=== PATIENT | male | born 1945 | race Caucasian/White ===

== ENCOUNTER 2022-08-22 06:17 | Inpatient (IN) | payer MEDICARE, OTHER ==
[~2022-08-22] VITALS: Ht 185.4 cm; Wt 65.8 kg
[~2022-08-22 06:17] MED LIST: AMLO-213 PO; ASPI-1169 PO; ATOR10TA PO; BUSP30TA2 PO; DIPH50CA4 PO; DOXA4TAB3 PO; DOXE150C PO; HYDR473S13 PO; LAMO100T17 PO; LOSA100T3 PO; METO100T14 PO; METO100T7 PO; PRAZ2CAP2 PO; TIZA4TAB5 PO; TRAZ-257 PO
--- NOTE | 2022-08-22 07:45 | NUR ---
Patient AOx4 able to express his concerns. Patient made aware of plan of care, patietn verbalized agreement. All safety precautions taken.
--- NOTE | 2022-08-22 07:49 | NUR ---
PAGED DR. DOMÍNGUEZ FOR ORTHO CONSULT. WAITING FOR CALLBACK
--- NOTE | 2022-08-22 08:06 | NUR ---
MOVE SHEET SUBMITTED.
[2022-08-22 08:25] LABS: BASOPHILS # (AUTO) 0.7 K/uL (0.0-0.2); BASOPHILS % (AUTO) 3.7 % (0.0-2.0); EOSINOPHILS % (AUTO) 0.2 % (0.0-6.0); HEMATOCRIT 30 % (39-51); HEMOGLOBIN 9.6 g/dL (13.5-17.5); MEAN CORPUSCULAR HGB CONC 32 g/dl (31.0-36.0); MEAN CORPUSCULAR VOLUME 94 fL (80-96); MONOCYTES # (AUTO) 1.7 K/uL (0.1-1.30); MONOCYTES % (AUTO) 8.9 % (2.0-12.0); NEUTROPHILS # (AUTO) 13.5 K/uL (1.8-8.9); NEUTROPHILS % (AUTO) 71.2 % (43.0-81.0); RED BLOOD CELL COUNT(AUTO) 3.17 MIL/uL (4.5-6.0)
[2022-08-22] MEDS ORDERED: ONDANSETRON HCL/PF 4 MG/2 ML VIAL ONE (08:47)
[2022-08-22] MEDS ORDERED: MORPHINE SULFATE INJ 4 MG/ML DISP.SYRIN ONE (08:47)
[2022-08-22 08:49] LABS: CALCIUM, SERUM 8.2 mg/dL (8.5-10.1); CARBON DIOXIDE 24 mmol/L (21-32); CHLORIDE 103 mmol/L (98-107); CREATININE 1.4 mg/dL (0.6-1.3); GLUCOSE 148 mg/dL (74-106); POTASSIUM 4.3 mmol/L (3.5-5.1); SODIUM SERUM 136 mmol/L (136-145); UREA NITROGEN, BLOOD 34 mg/dL (7-18)
[2022-08-22] MEDS ORDERED: BUSPIRONE HCL PO SCH (09:00)
[2022-08-22] MEDS ORDERED: hydrALAZINE HCL IV 20 MG VIAL IV PRN (09:00)
[2022-08-22] MEDS ORDERED: ACETAMINOPHEN 325 MG TABLET PO PRN (09:00)
[2022-08-22] MEDS ORDERED: ONDANSETRON HCL/PF 4 MG/2 ML VIAL IVP PRN (09:00)
[2022-08-22] MEDS ORDERED: MORPHINE SULFATE INJ 2 MG/ML DISP.SYRIN IV ONE (09:00)
[2022-08-22] MEDS ORDERED: IV NS 0.9% 1,000 ML IV ONE (09:00)
[2022-08-22] MEDS ORDERED: ATORVASTATIN 10 MG TABLET PO SCH (09:00)
[2022-08-22] MEDS ORDERED: MORPHINE SULFATE INJ 2 MG/ML DISP.SYRIN IV PRN (09:00)
[2022-08-22] MEDS ORDERED: LamoTRIgine 100 MG TABLET PO SCH (09:00)
[2022-08-22] MEDS ORDERED: ONDANSETRON HCL/PF 4 MG/2 ML VIAL IV ONE (09:00)
[2022-08-22] MEDS ORDERED: AMLODIPINE BESYLATE 10 MG TABLET PO SCH (09:00)
--- NOTE | 2022-08-22 09:10 | NUR ---
All medictions administered, no signs of infiltration, safety precautions taken.
[2022-08-22] MEDS ORDERED: QUET100T PO (10:05)
[2022-08-22] MEDS ORDERED: AMOX1TAB16 PO (10:14)
[2022-08-22] MEDS ORDERED: SENN-261 PO (10:14)
[2022-08-22] MEDS ORDERED: METO25TA4 PO (10:14)
[2022-08-22] MEDS ORDERED: INSU100I4 SQ (10:14)
[2022-08-22] MEDS ORDERED: POLY17PO4 PO (10:14)
[2022-08-22] MEDS ORDERED: INSU100V7 SQ (10:14)
[2022-08-22] MEDS ORDERED: ASPI-1169 PO (10:14)
[2022-08-22] MEDS ORDERED: CHOL100043 PO (10:14)
[2022-08-22] MEDS ORDERED: METO10TA3 PO (10:14)
[2022-08-22] MEDS ORDERED: HYDR-3642 PO (10:16)
--- NOTE | 2022-08-22 10:18 | NUR ---
111-2. admitting made aware
--- NOTE | 2022-08-22 10:45 | NUR ---
PATIENT ARRIVED VIA STRETCHER FROM ER. PATIENT WITH RIGHT HIP FRACTURE; WILL HAVE A SURGERY TOMORROW. PATIENT A/OX3 YI SPEAKING ON ROOM AIR. IV SITE RFA G #20 RUNNING NS @75ML/HR. SKIN INTACT. NO ST. BEFORE HIP FRACTURE PATIENT WAS AMBULATORY ON HIS OWN. WILL CONTINUE THE CARE THROUGHOUT THE SHIFT.
--- NOTE | 2022-08-22 10:56 | NUR ---
Sid transported to [facility]. room 111-2, report given to RN. Patient agrees with plan of care. All safety precautions taken.
[2022-08-22] MEDS: IV NS 0.9% 1,000 ML IV SCH ×2 (11:00→18:59)
[2022-08-22] MEDS: ZOSYN IVPB 3.375 G in IV D5W 50ml IV SCH ×3 (11:55→23:06)
[2022-08-22 12:00] VITALS: BP 89/54
[2022-08-22] MEDS: MORPHINE SULFATE IR 15 MG TABLET PO SCH ×2 (12:33→16:29)
[2022-08-22 12:40] LABS: ALBUMIN 1.6 g/dL (3.4-5.0); BILIRUBIN,DIRECT 6.7 mg/dL (0.0-0.2); BILIRUBIN,TOTAL 7.9 mg/dL (0.2-1.0)
[2022-08-22 13:21] LABS: BAND % (MANUAL) 3 % (0.0-5.0); NEUTROPHILS % (MANUAL) 80 (42-76)
[2022-08-22 13:22] LABS: LYMPHOCYTES % (MANUAL) 7 % (16-48); MONOCYTES % (MANUAL) 10 % (0-11.0)
[2022-08-22 13:30] LABS: PLATELET COUNT (AUTO) 133 K/uL (150-450)
--- NOTE | 2022-08-22 13:50 | NUR ---
PATIENT'S SHAYNE SIGNED THE CONSENT FORMS FOR THE RIGHT HIP HEMIARTHROPLASTY, ANESTHESIA, AND BLOOD TRANSFUSION. ALL PLACED IN PATIENT'S CHART
--- NOTE | 2022-08-22 16:30 | NUR ---
PATIENT ASKED ABOUT GOING HOME, DR. PAVON NOTIFIED AND HE SAID TO TEXT THE MRI RESULT TO DR. PECK THE NEUROLOGIST SO HE CAN CLEAR THE PATIENT. THE TEXT WAS SENT AND WAITING FRO DR. PECK'S RESPONSE.
--- NOTE | 2022-08-22 18:54 | NUR ---
RN CLOSING NOTE PATIENT ON ROOM AIR A/O X4. COOPERATIVE AND FOLLOWS COMMANDS. NO SOB OR DISTRESS NOTED. PT MUST BE NPO AFTER MIDNIGHT FOR TOMORROW'S RIGHT HIM HEMIARTHROPLASTY. ALL DUE MEDS GIVEN THROUGHOUT THE SHIFT. PATIENT KEPT CLEAN AND DRY. WILL ENDORSE THE PATIENT TO THE HOT DIE PRESS FEEDER NURSE FOR ELIZABETH.
--- NOTE | 2022-08-22 19:30 | NUR ---
MS RN OPENING NOTE RECEIVED PATIENT IN BED, AWAKE, A/O X 4, ABLE TO VERBALIZE NEEDS. CURRENTLY ON ROOM AIR, TOLERATING WELL. NO S/SX OF ACUTE RESPI DISTRESS NOTED AT THIS TIME. NO SOB. BREATHING IS EVEN AND UNLABORED. IV ACCESS ON RFA, #20g, PATENT, INTACT AND RUNNING NS @ 125 CC/HR. PT SCHEDULED FOR R HIP HEMIARTHROPLASTY TOMORROW. PT WILL BE NPO AFTER MIDNIGHT. ALL SAFETY MEASURES IN PLACE: BED LOCKED IN LOW POSITION. BED ALARM ON. SR UP X 2. CALL LIGHT WITHIN REACH. WILL CONTINUE TO MONITOR PT.
[2022-08-22 20:00] VITALS: BP 110/68
[2022-08-22] MEDS: HYDROMORPHONE INJ 2 MG/ML DISP.SYRIN IV PRN (20:11)
--- NOTE | 2022-08-22 20:45 | NUR ---
RN NOTE PT COMPLAINS OF PAIN ON HIS R HIP. DILAUDID GIVEN ORDERED.
[2022-08-22] MEDS ORDERED: DOXEPIN HCL 150 MG PO SCH (22:00)
[2022-08-22] MEDS ORDERED: DOXAZOSIN MESYLATE (4 MG) 4 MG TABLET PO SCH (22:00)
[2022-08-23] MEDS: IV NS 0.9% 1,000 ML IV SCH ×3 (01:36→19:24)
[2022-08-23] MEDS: HYDROMORPHONE INJ 2 MG/ML DISP.SYRIN IV PRN ×2 (01:59→12:59)
[2022-08-23] MEDS: ZOSYN IVPB 3.375 G in IV D5W 50ml IV SCH ×3 (05:33→18:15)
[2022-08-23 05:41] VITALS: BP 107/64
--- NOTE | 2022-08-23 06:14 | NUR ---
MS RN CLOSING NOTE PT HAD PERIODS OF CONFUSION T/O THE NIGHT. SAFETY MEASURES IMPLEMENTED. ALL DUE MEDS GIVEN. NEEDS MET. WILL ENDORSE TO AM SHIFT NURSE FOR ELIZABETH.
[2022-08-23] MEDS: METOPROLOL SUCCINATE 25 MG TAB.SR.24H PO SCH (08:41)
[2022-08-23] MEDS: MORPHINE SULFATE IR 15 MG TABLET PO SCH ×2 (08:42→16:26)
[2022-08-23] MEDS ORDERED: LOSARTAN POTASSIUM 50 MG TABLET PO SCH (09:00)
[2022-08-23 09:07] LABS: BASOPHILS # (AUTO) 0.5 K/uL (0.0-0.2); BASOPHILS % (AUTO) 2.5 % (0.0-2.0); EOSINOPHILS % (AUTO) 0.5 % (0.0-6.0); HEMATOCRIT 30 % (39-51); HEMOGLOBIN 9.5 g/dL (13.5-17.5); LYMPHOCYTES # (AUTO) 5.2 K/uL (0.8-4.8); LYMPHOCYTES % (AUTO) 27.1 % (20.0-44.0); MEAN CORPUSCULAR HGB CONC 32 g/dl (31.0-36.0); MEAN CORPUSCULAR VOLUME 96 fL (80-96); MONOCYTES # (AUTO) 1.1 K/uL (0.1-1.30); MONOCYTES % (AUTO) 5.5 % (2.0-12.0); NEUTROPHILS # (AUTO) 12.4 K/uL (1.8-8.9); NEUTROPHILS % (AUTO) 64.4 % (43.0-81.0); RED BLOOD CELL COUNT(AUTO) 3.12 MIL/uL (4.5-6.0); WHITE BLOOD COUNT (AUTO) 19.2 K/uL (4.3-11.0)
[2022-08-23 09:28] LABS: PLATELET COUNT (AUTO) 41 K/uL (150-450)
[2022-08-23 09:49] LABS: ALANINE AMINOTRANSFERASE 60 U/L (12-78); ALBUMIN 1.5 g/dL (3.4-5.0); ASPARTATE AMINOTRANSFERASE 192 U/L (15-37); BILIRUBIN,TOTAL 7.4 mg/dL (0.2-1.0); CALCIUM, SERUM 7.9 mg/dL (8.5-10.1); CARBON DIOXIDE 22 mmol/L (21-32); CHLORIDE 107 mmol/L (98-107); CREATININE 1.4 mg/dL (0.6-1.3); GLUCOSE 97 mg/dL (74-106); MAGNESIUM 1.8 mg/dL (1.8-2.4); PHOSPHORUS 3.2 mg/dL (2.5-4.9); POTASSIUM 4.1 mmol/L (3.5-5.1); SODIUM SERUM 137 mmol/L (136-145); TOTAL PROTEIN, SERUM 5.8 g/dL (6.4-8.2); UREA NITROGEN, BLOOD 33 mg/dL (7-18)
[2022-08-23 09:53] LABS: ALKALINE PHOSPHATASE 1478 U/L (46-116)
[2022-08-23 12:00] VITALS: BP 117/65
--- NOTE | 2022-08-23 12:30 | NUR ---
PATIENT'S IV SITE ON RIGHT FOREARM INFILTRATED, IV SITE REMOVED ICE PACK APPLIED ARM ELEVATED. GOING TO ORDER A MIDLINE BECAUSE PATIENT IS HARD STICK.
--- NOTE | 2022-08-23 12:30 | NUR ---
ms rn note called to miguel ayala notified that patient incidentally had 2 oranges and 1 milk ordered to do surgery tomorrow at 0730 and platelets to transfuse 1 units and 1 units stand by for surgery , also wants manage platelets above 75k, dr bang notified also about this
--- NOTE | 2022-08-23 15:49 | NUR ---
rn telephone triage note per blood bank no platelets ready yet ,they need order [facility] ,called to dr oh notified about this also notified that takes 4 hour and more to get platelets from [facility] will f\u
--- NOTE | 2022-08-23 17:00 | NUR ---
PLATELETS COUNT 41 AT 1300 SURGEON NOTIFIED HE ORDERED 2 UNITS OF PLASMA. PLASMA PREPARATION WAS NOT EASY BECAUSE IT WOULD TAKE 4 HRS TO BRING [facility] PLATELETS FROM [facility] SURGERY TIME AND DATE CHANGED FROM TODAY 4 PM TO TOMORROW [address] AT [address] EVON FAN SHOWED UP AND INSERT A MIDLINE ON PATIENT'S RIGHT UPPER ARM G 20. INTACT AND FLUSHING.
[2022-08-23 17:31] LABS: BAND % (MANUAL) 1 % (0.0-5.0); EOSINOPHILS % (MANUAL) 1 % (0-4); LYMPHOCYTES % (MANUAL) 7 % (16-48); MONOCYTES % (MANUAL) 3 % (0-11.0); NEUTROPHILS % (MANUAL) 88 (42-76)
[2022-08-23 20:00] VITALS: BP 96/63
--- NOTE | 2022-08-23 20:07 | NUR ---
RN CLOSING NOTES PATIENT IN BED A/OX3 ON ROOM AIR. NO SOB OR DISTRESS NOTED. PATIENT KEPT CLEAN AND DRY. PATIENT IS GOING TO HAVE A RIGHT HIP SURGERY TOMORROW AT 0730. FISH CUTTER NURSE EVELYN WILL ADMINISTER THE 2 UNITS OF PLATELETS AND WILL ORDER CBC AFTER INFUSION IS COMPLETED. THE GOAL PER THE SURGEON IS TO KEEP THE PLT COUNT OVER 75.
[2022-08-23 21:05] VITALS: BP 102/65
--- NOTE | 2022-08-23 21:05 | NUR ---
RN NOTE STARTED 1ST BAG OF PLATELET ORDERED. INITIAL VITAL SIGNS TAKEN AND NOTED TO BE WNL. INFUSED PER PROTOCOL. WILL CONTINUE TO MONITOR AND ASSESS FOR ANY BLOOD TRANSFUSION REACTION AND ADDRESS ACCORDINGLY. PROPERTY CLAIMS ADJUSTER WELL AWARE. *PER LAB ([facility]) 2ND BAG OF PLATELET HAS BEEN REQUESTED BUT NO YET ON HAND, THEY WILL CALL ONCE AVAILABLE. RN ACKNOWLEDGED.
[2022-08-23 21:20] VITALS: BP 100/57
[2022-08-23 21:35] VITALS: BP 100/60
--- NOTE | 2022-08-23 22:05 | NUR ---
RN NOTE CALLED RECEIVED FROM [facility], RN PROVIDED UPDATE 2 ORDERS OF PLATELET BUT ONLY 1 BAG HAS BEEN GIVEN AT THIS TIME, STILL WAITING FOR 2ND BAG, ONCE AVAILABLE WILL TRANSFUSE AND ONCE DONE WILL DO REPEAT CBC POST TRANSFUSION.
--- NOTE | 2022-08-23 22:35 | NUR ---
RN NOTE RECEIVED MSG FROM [facility] ORDER GIVEN FOR STAT PLATELET S/P 1ST BAG OF PLATELET AND THEN ANOTHER PLATELET COUNT AFTER 2NF BAG DONE. WAS ADVISED TO SEND HIM RESULT ONCE OUT. RN ACKNOWLEDGED AND WILL CARRY OUT. Addendum: 08/24/22 at 0104 by GIOVANNY LU RN @0010 PLATELET COUNT CAME OUT 73, NOTIFIED [facility]. ALSO ADVISED THAT STILL WAITING FOR THE 2ND BAG OF PLATELET.
--- NOTE | 2022-08-24 | NUR ---
RN NOTE PT PLACED ON NPO IN PREPARATION FOR AM PROCEDURE/SX
[2022-08-24] MEDS: HYDROMORPHONE INJ 2 MG/ML DISP.SYRIN IV PRN ×3 (00:20→21:43)
[2022-08-24] MEDS: ZOSYN IVPB 3.375 G in IV D5W 50ml IV SCH ×2 (00:20→05:01)
[2022-08-24] MEDS: IV NS 0.9% 1,000 ML IV SCH (00:26)
--- NOTE | 2022-08-24 01:04 | NUR ---
RN NOTE CALLED LAB S/W [facility] ([facility]OOD [facility]) FOLLOWED UP FOR THE 2ND BAG OF PLATELET, WAS ADVSIED NOT YET AVAILABLE AT THIS TIME AND BY 3AM CLS WOULD BE OFF AND BE BACK ON BY 06AM.
[2022-08-24 02:30] VITALS: BP 104/62
--- NOTE | 2022-08-24 02:30 | NUR ---
RN NOTE STARTED 2ND BAG OF PLATELET ORDERED. INITIAL VITAL SIGNS TAKEN AND NOTED TO BE WNL. INFUSED PER PROTOCOL. WILL CONTINUE TO MONITOR AND ASSESS FOR ANY BLOOD TRANSFUSION REACTION AND ADDRESS ACCORDINGLY. [employer] COUNSEL WELL AWARE.
[2022-08-24 02:45] VITALS: BP 98/61
[2022-08-24 03:00] VITALS: BP 100/61
[2022-08-24 04:00] VITALS: BP 115/68
--- NOTE | 2022-08-24 04:00 | NUR ---
RN NOTE PATIENT REMAINED TO BE IN NO SIGNS OF ACUTE RESPIRATORY DISTRESS, SAFE ENVIRONMENT MAINTAINED FOR PT. AM PATIENT CARE ASSISTANCE RENDERED. WILL CONTINUE TO MONITOR AND REASSESS FOR ANY CHANGES THROUGHOUT THE SHIFT.
[2022-08-24 05:45] LABS: CALCIUM, SERUM 7.8 mg/dL (8.5-10.1); CARBON DIOXIDE 20 mmol/L (21-32); CHLORIDE 106 mmol/L (98-107); CREATININE 1.4 mg/dL (0.6-1.3); GLUCOSE 106 mg/dL (74-106); POTASSIUM 4.3 mmol/L (3.5-5.1); SODIUM SERUM 139 mmol/L (136-145); UREA NITROGEN, BLOOD 32 mg/dL (7-18)
[2022-08-24 06:22] LABS: BASOPHILS # (AUTO) 0.3 K/uL (0.0-0.2); BASOPHILS % (AUTO) 1.4 % (0.0-2.0); EOSINOPHILS % (AUTO) 1.2 % (0.0-6.0); HEMATOCRIT 31 % (39-51); HEMOGLOBIN 9.9 g/dL (13.5-17.5); LYMPHOCYTES # (AUTO) 6.2 K/uL (0.8-4.8); LYMPHOCYTES % (AUTO) 30.9 % (20.0-44.0); MEAN CORPUSCULAR HGB CONC 32 g/dl (31.0-36.0); MEAN CORPUSCULAR VOLUME 95 fL (80-96); MONOCYTES % (AUTO) 5.1 % (2.0-12.0); NEUTROPHILS # (AUTO) 12.4 K/uL (1.8-8.9); NEUTROPHILS % (AUTO) 61.4 % (43.0-81.0); PLATELET COUNT (AUTO) 83 K/uL (150-450); RED BLOOD CELL COUNT(AUTO) 3.25 MIL/uL (4.5-6.0); WHITE BLOOD COUNT (AUTO) 20.1 K/uL (4.3-11.0)
--- NOTE | 2022-08-24 06:40 | NUR ---
RN NOTE @8136, RECEIVED CALL FROM OR, S/W AJ WAS GIVEN THE ADVISED THAT PT WILL BE PICKED UP FOR SCHEDULED SX. ADVISED HER ABOUT THE UPDATE AND ISSUE ABOUT PLATELET COUNT AFTER 2 BAGS. SHE SAID ITS OK THEY WILL JUST GET THE PATIENT AND MDs WILL REVIEW PT'S CHART AND WILL GO FROM THERE. RN ACKNOWLEDGED. PREP OP CHECK LIST DONE WITH ALL CONSENTS. CALLED [facility] AND ADVISED ABOUT UNOFFICIAL PLATELET COUNT (33) AFTER 2ND BAG BUT GETTING A REDRAW FOR OFFICIAL RESULT; PENDING RESULT. ALSO ADVISED THAT PT BEING TAKEN TO OR NOW WITH RESULTS PENDING FOR PLATELET. HE ACKNOWLEDGED. 0664 PT SENT TO OR, PICKED UP BY OR STAFF, CHART GIVEN WITH PREOP CHECKLIST AND ALL CONSENTS. PT IN STABLE CONDITION
[2022-08-24] MEDS ORDERED: BUPIVACAINE 0.5 % PF 150 MG/30 ML VIAL ONE (06:45)
--- NOTE | 2022-08-24 07:00 | NUR ---
RECEIVED REPORT ON PATIENT FROM CELIA RN. PATIENT CURRENTLY IN OPERATING ROOM. WILL CONTINUE PLAN OF CARE AND ANTICIPATE NEEDS.
[2022-08-24] MEDS ORDERED: FENTANYL PF 100MCG/2ML AMPUL ONE (07:18)
[2022-08-24] MEDS ORDERED: HYDROMORPHONE INJ 2 MG/ML DISP.SYRIN ONE (07:18)
[2022-08-24] MEDS: MORPHINE SULFATE IR 15 MG TABLET PO SCH ×2 (08:28→16:26)
[2022-08-24] MEDS: METOPROLOL SUCCINATE 25 MG TAB.SR.24H PO SCH (08:28)
[2022-08-24] MEDS ORDERED: BUPIVACAINE 0.25% 75 MG/30 ML VIAL ONE (08:48)
[2022-08-24] MEDS: ENOXAPARIN SODIUM 40 MG/0.4 ML DISP.SYRIN SQ SCH (10:00)
--- NOTE | 2022-08-24 10:36 | NUR ---
PATIENT RETURNED FROM OPERATING ROOM. RIGHT HIP DRESSING INTACT, NO BLEEDING NOTED. ICE PACK IN PLACE TO HELP REDUCE SWELLING. VITAL SIGNS ARE FOLLOWS: TEMP-97.6 BLOOD PRESSURE- 106/68 PULSE- 86 RESPIRATORY RATE0-18 O2%- 99% ON ROOM AIR. NO REPORTS OF PAIN AT THIS TIME. HOLDING LOVENOX DOSE PER MD. TO CONTINUE LOVENOX DOSE IN 24 HOURS IF HGB IS GREATER THAN 9. PATIENT RESTING COMFORTABLY, WILL CONTINUE PLAN OF CARE.
[2022-08-24 10:47] LABS: EOSINOPHILS % (MANUAL) 3 % (0-4); LYMPHOCYTES % (MANUAL) 12 % (16-48); MONOCYTES % (MANUAL) 7 % (0-11.0); NEUTROPHILS % (MANUAL) 78 (42-76)
[2022-08-24] MEDS ORDERED: IV NS 0.9% 250 ML IV PRN (11:30)
[2022-08-24] MEDS: MEROPENEM 1 G in IV NS 0.9% 100 ML IV SCH ×2 (11:39→21:18)
[2022-08-24 12:00] VITALS: BP 94/59
[2022-08-24] MEDS ORDERED: VANCOMYCIN 1 GM in IV D5W 250ml IV ONE (12:00)
[2022-08-24 12:49] LABS: ALBUMIN 1.6 g/dL (3.4-5.0); BILIRUBIN,TOTAL 7.2 mg/dL (0.2-1.0); TOTAL PROTEIN, SERUM 5.7 g/dL (6.4-8.2)
--- NOTE | 2022-08-24 12:53 | NUR ---
PATIENT REFUSING LINEN CHANGE
[2022-08-24 12:54] LABS: D-DIMER 13.21 mg/L(FEU (0.17-0.50)
[2022-08-24 13:06] LABS: BILIRUBIN,DIRECT 6.2 mg/dL (0.0-0.2)
[2022-08-24] MEDS: CEFAZOLIN 2 GM in IV D5W 100 ML IV SCH ×2 (16:15→23:17)
--- NOTE | 2022-08-24 18:51 | NUR ---
PATIENT REMAINS IN STABLE CONDITION. HAND OFF REPORT TO BE GIVEN TO EVELYN NUGENT FOR CONTINUATION OF CARE.
--- NOTE | 2022-08-24 19:10 | NUR ---
RN NOTE RECEIVED PT FOR CONTINUITY OF CARE. PATIENT A/OX2-3 IN NO S/SX OF ACUTE DISTRESS AT THIS TIME; CURRENTLY ON ROOM AIR ; WITH 02 SAT >95% AT THIS TIME.WITH IV ACCESS ON R UA ML PATENT, INTACT AND FLUSHING WELL. PT IS S/P R HIP HEMIARTHROPLASTY SURGICAL SITE DRESSING SECURED AND INTACT NO SIGNS OF BLEEDING AND INFECTION. PT HAS KOFFI DRAIN POST WHIPPLE PROCEDURE FORM [facility]. WILL ENSURE SAFETY MEASURES WITHIN THE SHIFT. PATIENT BED ALARM IS ON. HEAD OF BED ELEVATED. BED IS LOCKED, IN LOWEST POSITION AND SIDE RAILS UP. CALL LIGHT WITHIN REACH OF THE PATIENT. WILL CONTINUE TO MONITOR AND REASSESS FOR ANY CHANGES AND WILL CARRY OUT ANY ONGOING AND ACTIVE MD ORDER.
[2022-08-24 20:00] VITALS: BP 99/68
[2022-08-25] MEDS ORDERED: VANCOMYCIN 500 MG in IV D5W 100ml IV SCH ×2
[2022-08-25 05:00] VITALS: BP_SYST 91; BP_SYST 99; BP_DIAS 59; BP_DIAS 68
--- NOTE | 2022-08-25 06:40 | NUR ---
RN NOTE PATIENT REMAINS IN ROOM IN NO SIGNS OF RESPIRATORY DISTRESS, PATIENT STILL ON ON ROOM AIR ;TOLERATING WELL SATURATING @ >95% SP02. BILATERAL SOFT RESTRAINTS IN PLACED PER PROTOCOL. SAFETY MEASURES IMPLEMENTED, BED IN LOWEST POSITION, LOCKED, SIDE RAILS UP, CALL LIGHT WITHIN REACH. ALL NEEDS AND ORDERS ADDRESSED DURING THE SHIFT. IV ACCESS MAINTAINED INTACT, SECURED AND FLUSHING WELL. ALL DUE MEDS GIVEN ORDERED & SCHEDULED ; PATIENT TOLERATED WELL. PATIENT KEPT CLEAN AND COMFORTABLE WITHIN THE SHIFT. PLAN MAY START LOVENOX 24 HRS POST OP IF HBG >9. PATIENT ENDORSED TO INCOMING SHIFT RN WITH STABLE VITAL SIGN AND FOR CONTINUITY OF CARE.
--- NOTE | 2022-08-25 07:05 | NUR ---
MS RN OPENING NOTE RECEIVED PATIENT IN BED, AWAKE, A/O X 2-3, ABLE TO VERBALIZE NEEDS. CURRENTLY ON ROOM AIR, TOLERATING WELL. NO S/SX OF ACUTE RESPI DISTRESS NOTED AT THIS TIME. NO SOB. BREATHING IS EVEN AND UNLABORED. IV ACCESS ON MARINA MIDLINE, PATENT, INTACT. ALL SAFETY MEASURES IN PLACE: BED LOCKED IN LOW POSITION. BED ALARM ON. SR UP X 2. CALL LIGHT WITHIN REACH.
[2022-08-25 07:27] LABS: ALANINE AMINOTRANSFERASE 33 U/L (12-78); ALKALINE PHOSPHATASE 1134 U/L (46-116); ASPARTATE AMINOTRANSFERASE 136 U/L (15-37); BILIRUBIN,TOTAL 7.8 mg/dL (0.2-1.0); CALCIUM, SERUM 7.8 mg/dL (8.5-10.1); CARBON DIOXIDE 21 mmol/L (21-32); CHLORIDE 108 mmol/L (98-107); CREATININE 1.3 mg/dL (0.6-1.3); GLUCOSE 112 mg/dL (74-106); POTASSIUM 3.8 mmol/L (3.5-5.1); SODIUM SERUM 142 mmol/L (136-145); TOTAL PROTEIN, SERUM 5.7 g/dL (6.4-8.2); UREA NITROGEN, BLOOD 30 mg/dL (7-18)
[2022-08-25 07:32] LABS: ALBUMIN 1.4 g/dL (3.4-5.0)
[2022-08-25 08:23] LABS: BASOPHILS # (AUTO) 0.8 K/uL (0.0-0.2); BASOPHILS % (AUTO) 3.8 % (0.0-2.0); EOSINOPHILS % (AUTO) 0.1 % (0.0-6.0); HEMATOCRIT 27 % (39-51); HEMOGLOBIN 8.6 g/dL (13.5-17.5); LYMPHOCYTES % (AUTO) 32.9 % (20.0-44.0); MEAN CORPUSCULAR HGB CONC 32 g/dl (31.0-36.0); MEAN CORPUSCULAR VOLUME 96 fL (80-96); MONOCYTES # (AUTO) 1.1 K/uL (0.1-1.30); NEUTROPHILS # (AUTO) 12.4 K/uL (1.8-8.9); NEUTROPHILS % (AUTO) 58.2 % (43.0-81.0); PLATELET COUNT (AUTO) 88 K/uL (150-450); RED BLOOD CELL COUNT(AUTO) 2.85 MIL/uL (4.5-6.0); WHITE BLOOD COUNT (AUTO) 21.3 K/uL (4.3-11.0)
[2022-08-25] MEDS: CEFAZOLIN 2 GM in IV D5W 100 ML IV SCH (08:41)
[2022-08-25] MEDS: METOPROLOL SUCCINATE 25 MG TAB.SR.24H PO SCH (08:42)
--- NOTE | 2022-08-25 08:42 | NUR ---
RN NOTE: HOLD METOPROLOL B/P 97/62
[2022-08-25] MEDS: MORPHINE SULFATE IR 15 MG TABLET PO SCH (08:46)
[2022-08-25] MEDS ORDERED: PROSOURCE / PROSTAT (PYXIS) 30 ML UDC PO SCH (10:00)
[2022-08-25] MEDS: MEROPENEM 1 G in IV NS 0.9% 100 ML IV SCH (10:07)
[2022-08-25] MEDS: ENOXAPARIN SODIUM 40 MG/0.4 ML DISP.SYRIN SQ SCH (10:12)
[2022-08-25 11:00] VITALS: BP 100/64
--- NOTE | 2022-08-25 11:33 | NUR ---
MS RN NOTE: DR ORTIZ AT BEDSIDE.
[2022-08-25] MEDS: HYDROMORPHONE INJ 2 MG/ML DISP.SYRIN IV PRN (11:45)
[2022-08-25] MEDS ORDERED: VANCOMYCIN 1.25 GM in IV D5W 250 ML IV SCH (12:00)
--- NOTE | 2022-08-25 12:00 | NUR ---
REQUESTED CD FROM [facility], PER PAUL THE CD MACHINE IS NOT WORKING AND HES UNABLE TO PROVIDE CD COPY AT THIS TIME. MADE [employer]IDENCE SPECIALIST INDEER RN AWARE. MADE RUT ADMINISTRATOR OF HOME HEALTH AWARE.
--- NOTE | 2022-08-25 12:02 | NUR ---
MS RN NOTE: RECEIVED CALL FROM KHADIJAH (INPATIENT ADMIN) FROM [facility] [phone] ACCEPTED THE PATIENT. REPORT TO [phone]. ROOM 4226 ([facility])
--- NOTE | 2022-08-25 12:47 | NUR ---
GAVE REPORT TO SCOTT NUGENT FROM [facility] [phone]. PT GOING TO ROOM 4226 ([facility])
[2022-08-25 13:16] LABS: BASOPHILS % (MANUAL) 0 % (0.0-2.0); EOSINOPHILS % (MANUAL) 0 % (0-4); LYMPHOCYTES % (MANUAL) 29 % (16-48); MONOCYTES % (MANUAL) 7 % (0-11.0); NEUTROPHILS % (MANUAL) 64 (42-76)
[2022-08-25 13:36] VITALS: BP 100/64
--- NOTE | 2022-08-25 14:40 | NUR ---
PT GOING TO [facility] FOR HLOC. PT PICKED UP BY [facility] 2 EMT IN A GURNEY. PT AOX3. DENIES PAIN OR DISCOMFORT. NO RESP DISTRESS NOTED. IN STABLE CONDITION. ALL BELONGINGS ACCOUNTED FOR AND SIGNED BY PATIENT. PT IN STABLE CONDITION.
== END 2022-08-25 18:49 | disposition short-term general hospital (02) | DRG 521 ==
LOC: ER 06:19 → TRANSITION 08:47 → MEDSG1 10:24
PROVIDERS: ADMIT Internal Medicine; ATTEND Internal Medicine
PROC: 30233R1 Transfusion of Nonautologous Platelets into Peripheral Vein, Percutaneous Approach (ICD-10-PCS; 2022-08-23)
PROC: 05HC33Z Insertion of Infusion Device into Left Basilic Vein, Percutaneous Approach (ICD-10-PCS; 2022-08-23)
PROC: 30233N1 Transfusion of Nonautologous Red Blood Cells into Peripheral Vein, Percutaneous Approach (ICD-10-PCS; principal; 2022-08-24)
PROC: 0SRR0JZ Replacement of Right Hip Joint, Femoral Surface with Synthetic Substitute, Open Approach (ICD-10-PCS; 2022-08-24)
PROC: 30233L1 Transfusion of Nonautologous Fresh Plasma into Peripheral Vein, Percutaneous Approach (ICD-10-PCS; 2022-08-24)
PROC: 30233K1 Transfusion of Nonautologous Frozen Plasma into Peripheral Vein, Percutaneous Approach (ICD-10-PCS; 2022-08-24)
DX: S72.001A Fracture of unspecified part of neck of right femur, initial encounter for closed fracture (principal); E43 Unspecified severe protein-calorie malnutrition; N17.0 Acute kidney failure with tubular necrosis; K65.1 Peritoneal abscess; I13.0 Hypertensive heart and chronic kidney disease with heart failure and stage 1 through stage 4 chronic kidney disease, or unspecified chronic kidney disease; R64 Cachexia; C78.7 Secondary malignant neoplasm of liver and intrahepatic bile duct; J98.11 Atelectasis; R18.8 Other ascites; W10.8XXA Fall (on) (from) other stairs and steps, initial encounter; Y93.01 Activity, walking, marching and hiking; Y92.009 Unspecified place in unspecified non-institutional (private) residence as the place of occurrence of the external cause; I50.9 Heart failure, unspecified; N18.9 Chronic kidney disease, unspecified; D72.829 Elevated white blood cell count, unspecified; E11.22 Type 2 diabetes mellitus with diabetic chronic kidney disease; Z66 Do not resuscitate; Z20.822 Contact with and (suspected) exposure to COVID-19; E78.5 Hyperlipidemia, unspecified; Z85.07 Personal history of malignant neoplasm of pancreas; Z90.411 Acquired partial absence of pancreas; Z90.49 Acquired absence of other specified parts of digestive tract; Z79.82 Long term (current) use of aspirin; Z79.899 Other long term (current) drug therapy; Z79.4 Long term (current) use of insulin; Z87.891 Personal history of nicotine dependence; I25.10 Atherosclerotic heart disease of native coronary artery without angina pectoris; Z85.05 Personal history of malignant neoplasm of liver; E88.09 Other disorders of plasma-protein metabolism, not elsewhere classified; I70.0 Atherosclerosis of aorta; R74.01 Elevation of levels of liver transaminase levels; J45.909 Unspecified asthma, uncomplicated; Z98.890 Other specified postprocedural states; D63.8 Anemia in other chronic diseases classified elsewhere; K83.9 Disease of biliary tract, unspecified
CPT/HCPCS: 36415; 71045-TC; 73502; 80048-TC; 80053-TC; 80076-TC; 83605-TC; 83735-TC; 84100-TC; 85025-TC; 85396; 85730-TC; 86850-TC; 87040-TC; 87081-TC; 93307-TC; 94799-TC; A4217; A4349; A6209; C1751; C1776; C9803; G0378; J0330; J0690; J1170; J1650; J2185; J2270; J2405; J2543; J2704; J3010; J3370; J3490; J7030; J7040; J7050; J7060; P9016; P9017; P9034